=== PATIENT | female | born 1945 | race African-American/Black ===

== ENCOUNTER 2022-06-05 14:44 | Inpatient (IN) | payer OTHER ==
[~2022-06-05] VITALS: Ht 152.4 cm; Wt 49.4 kg
[2022-06-05 15:03] VITALS: BP 153/84
[2022-06-05] MEDS ORDERED: NACL 0.9% 1,000 ML IV ONE (15:10)
--- NOTE | 2022-06-05 15:30 | NUR ---
PT PLACED ON NON-REBREATHER MASK D/T DESATURATION EPISODES AND SOB. PT NOTED TO HAVE AUDIBLE CONGESTION, NASO-TRACHEAL SUCTION PERFORMED WITH COPIOUS YELLOW-BEIGE SECRETIONS COLLECTED. O2 TITRATED TO 6L SIMPLE MASK SPO2 97% TOLERATING WELL.
[2022-06-05 15:53] LABS: BASOPHILS # (AUTO) 0.1 K/uL (0.00-0.22); BASOPHILS % (AUTO) 0.5 % (0.0-2.0); HEMATOCRIT 38.7 % (36-48); HEMOGLOBIN 13.1 g/dL (12.0-16.0); LYMPHOCYTES # (AUTO) 1.6 K/uL (2.5-16.5); MEAN CORPUSCULAR HEMOGLOBIN 31 pg (27-31); MEAN CORPUSCULAR HGB CONC 34 g/dL (33-37); MEAN CORPUSCULAR VOLUME 92.1 fL (80-94); MONOCYTES # (AUTO) 0.9 K/uL (0.8-1.0); MONOCYTES % (AUTO) 8.2 % (1.7-9.3); NEUTROPHILS # (AUTO) 8.1 K/uL (1.8-7.7); NEUTROPHILS % (AUTO) 76.3 % (42.2-75.2); PLATELET COUNT (AUTO) 200 K/uL (140-450); RED CELL DISTRIBUTION WIDTH 18.2 % (11.6-13.7); WHITE BLOOD COUNT (AUTO) 10.7 K/uL (4.8-10.8)
[2022-06-05 16:06] LABS: ALBUMIN 1.6 g/dL (3.4-5.0); ANION GAP 8.6 (8-16); ASPARTATE AMINOTRANSFERASE 22 U/L (15-37); CARBON DIOXIDE 29.3 mmol/L (21-32); CHLORIDE 107 mmol/L (98-107); CREATININE 0.6 mg/dL (0.6-1.3); GLUCOSE 148 mg/dL (74-106); SODIUM SERUM 142 mmol/L (136-145); TOTAL BILIRUBIN 0.4 mg/dL (0.0-1.0); UREA NITROGEN, BLOOD 11 mg/dL (7-18)
[2022-06-05 16:09] LABS: POTASSIUM 2.9 mmol/L (3.5-5.1)
[2022-06-05] MEDS ORDERED: KCL 20 MEQ/WATER INJ PREMIX 200 ML IV ONE (16:15)
[2022-06-05] MEDS ORDERED: PIPERACILLIN/TAZOBACTAM 3.375 GM in DEXTROSE 5% 50 ML IV ONE (16:20)
[2022-06-05] MEDS ORDERED: VANCOMYCIN 1,000 MG in DEXTROSE 5% 250 ML IV ONE (16:20)
[2022-06-05 16:50] LABS: APPEARANCE,URINE CLEAR (CLEAR); BILIRUBIN,URINE NEGATIVE (NEGATIVE); BLOOD, URINE TRACE-I (NEGATIVE); COLOR,URINE YELLOW (YELLOW); LEUKOCYTE ESTERASE ,URINE NEGATIVE (NEGATIVE); NITRITE, URINE NEGATIVE (NEGATIVE); PH,URINE 7.5 (5.0-9.0); UGLUCOSE NEGATIVE (NEGATIVE)
[2022-06-05] MEDS ORDERED: PIPERACILLIN/TAZOBACTAM 3.375 GM VIAL IV ONE ×2 (16:50→21:58)
[2022-06-05] MEDS ORDERED: VANCOMYCIN 1,000 MG VIAL ONE (16:51)
[2022-06-05 17:08] LABS: RBC,URINE 0-5 /HPF (0-5)
[2022-06-05 17:09] LABS: TRICHOMONAS,URINE None Seen /HPF (None Seen); WBC,URINE 0-5 /HPF (0-5); YEAST,URINE None Seen /HPF (None Seen)
[2022-06-05 17:10] LABS: CALCIUM OXALATE CRYSTALS,UR 0-10 /HPF (None Seen)
[2022-06-05] MEDS ORDERED: MAG SULF 2000 MG/WATER PREMIX 50 ML IV PRN (17:35)
[2022-06-05] MEDS ORDERED: ONDANSETRON 4 MG/2 ML VIAL IM/IVP PRN (17:35)
[2022-06-05] MEDS ORDERED: DOCUSATE SODIUM 100 MG GELCAP PO PRN (17:35)
[2022-06-05] MEDS ORDERED: ACETAMINOPHEN 325 MG TAB PO PRN (17:35)
[2022-06-05] MEDS ORDERED: SODIUM PHOS / POTASSIUM PHOS 1 PKT PDR PO PRN (17:35)
--- NOTE | 2022-06-05 17:47 | NUR ---
pt sleeping, no ac distress, rr 24/min, o2 sa97% fm, iv patent left foot, getting abx, no erythema or swelling at iv site, md and charge nurse aware no iv access to arms, no signs of infiltration at iv site
[2022-06-05 18:25] LABS: MAGNESIUM 1.9 mg/dL (1.8-2.4); PHOSPHORUS 2.7 mg/dL (2.5-4.9)
[2022-06-05] MEDS ORDERED: VANCOMYCIN PER PHARMACY MC PRN (19:10)
[2022-06-05] MEDS ORDERED: LACT1TAB47 NGT (19:14)
[2022-06-05] MEDS ORDERED: [UNRECOGNIZED DRUG - CODE] NGT (19:22)
[2022-06-05] MEDS ORDERED: ROB1 NGT (19:22)
[2022-06-05] MEDS ORDERED: LORA-476 NGT (19:22)
[2022-06-05] MEDS ORDERED: KEP500L NGT (19:22)
--- NOTE | 2022-06-05 19:38 | NUR ---
FAMILY REPORTED THAT THEY WOULD LIKE TO PRAY FOR PATIENT. ON THE PHONE, SPEAKING TO FRANCISCO TENA AND FRANCISCO WILL PRAY TO PATIENT.
--- NOTE | 2022-06-05 19:52 | NUR ---
NOTED PT TO SUDDENLY HAVE TREMORS, TO TWITCHING LIKE MOVEMENT, PT EYES OPEN. CALLED ER MD- PT DOES HAVE HX OF SEIZURES, ER MD WILL ORDER ATIVAN FOR PATIENT FOR SEIZURE LIKE MOVEMENT.
--- NOTE | 2022-06-05 20:09 | NUR ---
CHECKED PATIENT FOR WOUNDS. NO WOUNDS NOTED AT THIS TIME BUT THERE SEEMS TO BE CLOSED AND HEALED WOUNDS AT THE COCCYX & BUTTOCKS AREA.
[2022-06-05] MEDS ORDERED: LORazepam 2 MG/ML VIAL IVP PRN (20:20)
--- NOTE | 2022-06-05 21:30 | NUR ---
PT TRANSPORTED VIA GURNEY. PT IS NONVERBAL. PT IS ON SIMPLE FACEMASK 6L SATING 99%. PT HAS LEFT FOOT 20 GAUGE ON NS 75 CC/HR. PT HAS NG TUBE ALREADY PLACED. FC DRAINING CLEAR YELLOW URINE. PT AT THE LOWEST POSITION. HEAD OF THE BED RAISED. WILL CONTINUE TO MONITOR THE PT.
--- NOTE | 2022-06-05 21:33 | NUR ---
Patient will be admitted to care of Nichole RAYO. Admited to telemetry. Will go to room 115. Belongings list completed. Report to Burak IBARRA.
[2022-06-05 21:35] VITALS: BP 153/78
[2022-06-05] MEDS: GLYCOPYRROLATE 1 MG TAB NG SCH ×2 (22:00→23:30)
[2022-06-05] MEDS: levETIRAcetam 100 MG/ML ORASYR NG SCH ×2 (22:00→23:30)
[2022-06-05] MEDS: PIPERACILLIN/TAZOBACTAM 3.375 GM in DEXTROSE 5% 50 ML IV SCH (22:09)
[2022-06-05] MEDS: DEXT 5% / NACL 0.45% 1,000 ML IV SCH (22:09)
--- NOTE | 2022-06-05 22:25 | NUR ---
UNABLE TO GIVE NG MEDICATIONS. PT CAME IN WITH NG TUBE ALREADY IN PLACE. [facility] SYRING[facility] DONT FIT IN THE PT NG TUBE FROM [facility].
[2022-06-06] VITALS: BP 155/83
--- NOTE | 2022-06-06 02:03 | NUR ---
PT IS SLEEPING IN BED COMFORTABLY. PT IS NOT IN ANY ACUTE DISTRESS. PT IS SATING 100% ON SIMPLE FACE MASK 5L. WILL CONTINUE TO MONITOR THE PT.
[2022-06-06 04:00] VITALS: BP 111/72
[2022-06-06] MEDS ORDERED: PIPERACILLIN/TAZOBACTAM 3.375 GM VIAL IV ONE (04:47)
[2022-06-06] MEDS: PIPERACILLIN/TAZOBACTAM 3.375 GM in DEXTROSE 5% 50 ML IV SCH ×3 (04:54→21:00)
[2022-06-06] MEDS: GLYCOPYRROLATE 1 MG TAB NG SCH ×3 (04:55→21:00)
--- NOTE | 2022-06-06 05:08 | NUR ---
SCHEDULE MEDICATIONS GIVEN. NO ADVERSE REACTION NOTED. PT NOT IN ANY RESPIRATORY DISTRESS. PT IS SATING 99%. WILL CONTINUE TO MONITOR THE PT.
[2022-06-06] MEDS: DEXT 5% / NACL 0.45% 1,000 ML IV SCH ×2 (05:19→23:00)
[2022-06-06 07:07] LABS: BASOPHILS % (AUTO) 0.3 % (0.0-2.0); EOSINOPHILS % (AUTO) 0.4 % (0.0-4.0); HEMATOCRIT 30.5 % (36-48); LYMPHOCYTES # (AUTO) 1.6 K/uL (2.5-16.5); LYMPHOCYTES % (AUTO) 25.9 % (20.5-51.1); MEAN CORPUSCULAR HEMOGLOBIN 31 pg (27-31); MEAN CORPUSCULAR HGB CONC 33 g/dL (33-37); MEAN CORPUSCULAR VOLUME 93.8 fL (80-94); MONOCYTES # (AUTO) 0.7 K/uL (0.8-1.0); NEUTROPHILS % (AUTO) 62.4 % (42.2-75.2); PLATELET COUNT (AUTO) 129 K/uL (140-450); RED BLOOD CELL COUNT(AUTO) 3.26 MIL/uL (4.20-5.40); RED CELL DISTRIBUTION WIDTH 17.8 % (11.6-13.7); WHITE BLOOD COUNT (AUTO) 6.4 K/uL (4.8-10.8)
--- NOTE | 2022-06-06 07:18 | NUR ---
ENDORSED PT TO DAY SHIFT RN ADZ FOR CONTINUITY OF CARE. PT IS STABLE.
[2022-06-06 08:00] VITALS: BP 131/54
[2022-06-06] MEDS: PANTOPRAZOLE 40 MG INJ VIAL IVP SCH (08:43)
[2022-06-06] MEDS: levETIRAcetam 100 MG/ML ORASYR NG SCH ×2 (08:43→21:00)
[2022-06-06 08:45] LABS: ANION GAP 10.5 (8-16); CARBON DIOXIDE 24.4 mmol/L (21-32); CHLORIDE 112 mmol/L (98-107); CREATININE 0.5 mg/dL (0.6-1.3); GLUCOSE 100 mg/dL (74-106); SODIUM SERUM 144 mmol/L (136-145); UREA NITROGEN, BLOOD 8 mg/dL (7-18)
[2022-06-06 09:43] LABS: POTASSIUM 2.9 mmol/L (3.5-5.1)
[2022-06-06] MEDS: POTASSIUM CHLORIDE 40 MEQ, LIDOCAINE MPF 1% 25 MG in NACL 0.9% 250 ML IV PRN (11:20)
[2022-06-06 12:00] VITALS: BP 135/60
[2022-06-06 16:00] VITALS: BP 128/64
[2022-06-06] MEDS ORDERED: VANCOMYCIN 1,000 MG in DEXTROSE 5% 250 ML IV SCH (16:00)
[2022-06-06 20:00] VITALS: BP 134/68
[2022-06-07] VITALS: BP 140/72
--- NOTE | 2022-06-07 01:27 | NUR ---
PATIENT NOT RESPONSIVE TO TOUCH NON VERBAL TEMP 97.1 LUNGS DIMINISH SINUS ON MONITOR HAS NGT N.P.O. EXCEPT MEDS. HAS D51/2NS AT 75 HOUR. HAS 20 GA IN FOOT. PATIENT SUCTION BY R.T. THICK SECRETIONS. PATIENT IS A MODIFIED CODE. NO DISTRESS NOTED.
[2022-06-07 04:00] VITALS: BP 142/76
[2022-06-07] MEDS: PIPERACILLIN/TAZOBACTAM 3.375 GM in DEXTROSE 5% 50 ML IV SCH ×2 (05:00→12:24)
[2022-06-07] MEDS: GLYCOPYRROLATE 1 MG TAB NG SCH ×2 (05:00→12:26)
[2022-06-07 07:28] LABS: BASOPHILS % (AUTO) 0.5 % (0.0-2.0); EOSINOPHILS # (AUTO) 0.1 K/uL (0-0.4); EOSINOPHILS % (AUTO) 1.1 % (0.0-4.0); HEMATOCRIT 31.9 % (36-48); HEMOGLOBIN 10.6 g/dL (12.0-16.0); LYMPHOCYTES # (AUTO) 1.1 K/uL (2.5-16.5); LYMPHOCYTES % (AUTO) 18.8 % (20.5-51.1); MEAN CORPUSCULAR HEMOGLOBIN 31 pg (27-31); MEAN CORPUSCULAR HGB CONC 33 g/dL (33-37); MEAN CORPUSCULAR VOLUME 93.3 fL (80-94); MONOCYTES # (AUTO) 0.6 K/uL (0.8-1.0); MONOCYTES % (AUTO) 11.2 % (1.7-9.3); NEUTROPHILS # (AUTO) 3.8 K/uL (1.8-7.7); NEUTROPHILS % (AUTO) 68.4 % (42.2-75.2); PLATELET COUNT (AUTO) 147 K/uL (140-450); RED BLOOD CELL COUNT(AUTO) 3.42 MIL/uL (4.20-5.40); RED CELL DISTRIBUTION WIDTH 17.7 % (11.6-13.7); WHITE BLOOD COUNT (AUTO) 5.6 K/uL (4.8-10.8)
[2022-06-07 07:29] LABS: ANION GAP 7.6 (8-16); CARBON DIOXIDE 30.9 mmol/L (21-32); CHLORIDE 108 mmol/L (98-107); CREATININE 0.5 mg/dL (0.6-1.3); GLUCOSE 111 mg/dL (74-106); SODIUM SERUM 144 mmol/L (136-145); UREA NITROGEN, BLOOD 5 mg/dL (7-18)
[2022-06-07 07:38] LABS: POTASSIUM 2.5 mmol/L (3.5-5.1)
[2022-06-07 08:00] VITALS: BP 151/77
--- NOTE | 2022-06-07 08:00 | NUR ---
ASSESSMENT COMPLETED PLAN OF CARE REVIEWED TURNED AND REPSOTIONED NO S/S OF PAIN NOTED WILL CONTINUE TO MONOTOR AND ASSESS
[2022-06-07] MEDS: levETIRAcetam 100 MG/ML ORASYR NG SCH (08:24)
[2022-06-07] MEDS: PANTOPRAZOLE 40 MG INJ VIAL IVP SCH (08:24)
--- NOTE | 2022-06-07 08:52 | NUR ---
PT. WITH LOW LUC SCALE AT MODERATE TO HIGH RISK, CONTINUE TO FOLLOW PRESSURE INJURY PREVENTION INTERVENTIONS. -POSITIONING: TURN AND REPOSITION PATIENT Q 2H OR SOONER USE PILLOWS TO KEEP BONY PROMINENCES FROM DIRECT CONTACT WITH SURFACES USE REPOSITIONING WEDGES TO PROVIDE 30-DEGREE ANGLE FOR SIDE LYING POSITIONS OFFLOADING OR FOAM DRESSING TO ALL TUBING TO PREVENT MEDICAL DEVICES RELATED PRESSURE INJURY -RE-EVALUATING AND MANAGING INCONTINENCE MONITOR SKIN CONDITION DURING POSITION CHANGE DO NOT MASSAGE REDNESS, BONY PROMINENCES FREQUENT VIET-CARE AND PROVIDE BARRIER CREAMS PRN IF SOILING MOISTURE CONTROL BY OFFER BED RAYMOND/URINAL /ABSORBENT PAD TO WICK AND HOLD MOISTURE KEEP SKIN DRY AND PROTECT FROM FRICTION -MANAGE FRICTION/SHEAR/MOBILITY KEEP HOB AT THE LOWEST LEVEL OF ELEVATION NO MORE THAN 30 DEGREE UNLESS OTHERWISE CONTRAINDICATED USE LIFT SHEET OR TRANSFER DEVICE TO MOVE PATIENT AND PREVENT LATERAL SHEER. PROTECT HEELS, ELBOWS BONY PROMINENCES WITH SKIN BERRIES OR FOAM DRESSING IF EXPOSED TO FRICTION OFFLOAD BILATERAL HEELS BY PLACING PILLOWS UNDER CALVES AT ALL TIMES, UNLESS OTHERWISE CONTRAINDICATED -PRESSURE REDISTRIBUTION SURFACE THERAPY KALEB ISOFLEX MATTRESS -NUTRITION: PLEASE FOLLOW RD RECOMMENDATIONS AND OFFER NUTRITION SUPPLEMENTS IF ORDERED. PLEASE CONTACT WOUND CARE NURSE FOR ANY QUESTION AND CHANGE OF WOUND CONDITION.
[2022-06-07] MEDS: POTASSIUM CHLORIDE 40 MEQ, LIDOCAINE MPF 1% 25 MG in NACL 0.9% 250 ML IV PRN (09:02)
[2022-06-07] MEDS: DEXT 5% / NACL 0.45% 1,000 ML IV SCH ×2 (09:35→12:29)
--- NOTE | 2022-06-07 10:44 | NUR ---
PATIENT HAS BEEN SCREENED AND CATEGORIZED HIGH NUTRITION RISK. PATIENT WILL BE SEEN WITHIN 1-2 DAYS OF ADMISSION. 06/05/22-06/07/22 FNS REFERRAL RECEIVED FOR TUBE FEEDING REVIEWED BY MARINA KAHN RD
[2022-06-07 12:00] VITALS: BP 154/75
--- NOTE | 2022-06-07 12:49 | NUR ---
MD XIAO MADE AWARE OF BP 154/77 NO NEW ORDERS AT THIS TIME PER MD IF SBP GREATER THAN 160 NOTIFY HIM PT APPEARS IN NO ACUTE DITRESS AT THIS TIME
--- NOTE | 2022-06-07 13:25 | NUR ---
LATE ENTRY- IVPB PIPERACILLIN DISCONTINUED AT 2132. IV POTASSIUM DISCONTINUED AT 2132. IV VANCOMYCIN DISCONTINUED AT 2132.
--- NOTE | 2022-06-07 13:50 | NUR ---
DC PLANNING: FAXED THE ORDER STABLE FOR TRANSFER TO [facility] [phone]. CM TO FOLLOW Addendum: 06/07/22 at 1452 by Sidra Glynn RN DC PLANNING: RECEIVED A CALL FROM [facility] CASE BILLING ANALYST SPOKE WITH [employer] UPDATED HER PATIENT'S CLINICAL PER [employer] WORKING ON IT AND WILL CALL BACK WHEN BED AVAILABLE. CM TO FOLLOW
[2022-06-07] MEDS ORDERED: POTASSIUM CHLORIDE 40 MEQ, LIDOCAINE MPF 1% 25 MG in NACL 0.9% 250 ML IV SCH (14:00)
--- NOTE | 2022-06-07 15:45 | NUR ---
TIME CORRECTION FOR 0676
--- NOTE | 2022-06-07 16:01 | NUR ---
ON OR ABOUT THIS TIME; USING A GLIDESCOPE PATIENT WAS SUCCESSFULLY INTUBATED BY ERMD WITH AN ENDOTRACHEAL TUBE #7.5 AT 23m TEETH/GUM LINE SECURED WITH AN ANCHOR FAST; BAG MASK VALVE DEPRESSION EVERY 6 SECONDS; PLACEMENT CONFIRMATION: ETCO2 DETECTOR YELLOW, GOOD CHEST RISE, AUSCULTATION BILATERAL APEX TO MID BY ERMD WITH GOOD AERATION; CXR TO FOLLOW; SATURATION MONITORING
--- NOTE | 2022-06-07 16:13 | NUR ---
06/07/22 RD INITIAL ASSESSMENT COMPLETED PLEASE REFER TO NUTRITION ASSESSMENT UNDER CARE ACTIVITY FOR ESTIMATED NUTRITIONAL NEEDS. 1. WHEN/IF MEDICALLY APPROPRIATE, RECOMMEND JEVITY 1.2 @ 45 ML/HR -FWF: 100 ML Q6H -START AT 20 ML/HR AND INCREASE BY 20 ML Q4H TOLERATED UNTIL GOAL RATE IS ACHIEVED. -PATIENT WILL RECEIVE 1296 KCAL, 60 GRAMS PROTEIN, AND 1271 ML VOLUME. THIS WILL MEET 100% OF PATIENTS ESTIMATED KCAL NEEDS AND 100% OF PROTEIN NEEDS. 2. MONITOR NUTRITION RELATED LAB VALUES AND PO STATUS 3. RD TO FOLLOW-UP 3-5 DAYS, MODERATE RISK REVIEWED BY MARINA KAHN RD
--- NOTE | 2022-06-07 16:45 | NUR ---
ON OR ABOUT THIS TIME CODE KARL WAS CALLED; Lou JAMES RCP AND Bernadette RAZA RCP ATTENDING; CLASS CODE REVIEWED BY MJ AND RN MODIFIED CODE NO CHEST COMPRESSION Addendum: 06/10/22 at 0903 by Yuval James RT TIME CORRECTION 3637
--- NOTE | 2022-06-07 16:47 | NUR ---
APPROXIMATELY 1552 CHERRY CUTTER YELLED PT HR DROPPING WENT TO THE ROOM IMMEDIATELY AND NOTED A WEAK THREADY PULSE CODE BLUE ACTIVATED PT MODIFIED CODE NO CHEST COMPRESSIONS IV AT LEFT FOOT WIDE OPEN AND ACLS DRUGS TO START 1555 EPI GIVEN 1557 EPI GIVEN BLOOD GLUCOSE 134 1559 CALCIUM GIVEN PULSE CHECK 1600 FAMILY NOTIFIED 1600 EPI GIVEN 1602 INTUBATED 7.5 23@ TEETH 1603 I/O PLACED AT RIGHT LOWER EXTREMITY 1604 SODIUM BICARB X 2 1605 EPI GIVEN 1606 ASYTOLE 1608 EPI GIVEN 1610 ASYSTOLE 1611 TIME OF PRONOUNCED BY DR ELAM
--- NOTE | 2022-06-07 16:55 | NUR ---
1640 [employer] NOTIFIED AND PT NOT A CANDIDATE REFERENCE NUMBER [id number] SPOKE WITH MARÍA PADILLA 1645 CORNER CALLED SPOKE WITH AND ANTOLINUTY WILL HAVE A FARM PLANNER CALL BACK TO TAKE THE REPORT [phone] BARBARA IN ADMITTING NOTIFIED NEENA NURSE STRAIGHTENER AND ALIGNER PRESENT DURING CODE AND AWARE
--- NOTE | 2022-06-07 17:29 | NUR ---
SPOKE WITH OLGA SAAVEDRA FROM [facility] TO RELEASE PATINET NO SHARYN CASE NO [facility] CASE NUMBER
--- NOTE | 2022-06-07 18:33 | NUR ---
FAMILY IN AND PRESENT AND CHOSE [facility] IN [place] SPOKE WITH RASHI AT [facility] AND ETA 2 HOUR AND 30 MINUTES FAMILY LEFT
== END 2022-06-07 16:11 | DRG 871 ==
LOC: MED 14:44 → EDBEDREQSVC 17:23 → MTU 17:32
PROVIDERS: ADMIT Hospitalist; ATTEND Hospitalist
PROC: 0BH17EZ Insertion of Endotracheal Airway into Trachea, Via Natural or Artificial Opening (ICD-10-PCS; principal; 2022-06-07)
DX: A41.9 Sepsis, unspecified organism (principal); E43 Unspecified severe protein-calorie malnutrition; G93.41 Metabolic encephalopathy; J69.0 Pneumonitis due to inhalation of food and vomit; J96.01 Acute respiratory failure with hypoxia; N39.0 Urinary tract infection, site not specified; E03.9 Hypothyroidism, unspecified; Z66 Do not resuscitate; G40.909 Epilepsy, unspecified, not intractable, without status epilepticus; D63.8 Anemia in other chronic diseases classified elsewhere; G30.9 Alzheimer's disease, unspecified; F02.80 Dementia in other diseases classified elsewhere, unspecified severity, without behavioral disturbance, psychotic disturbance, mood disturbance, and anxiety; E78.5 Hyperlipidemia, unspecified; E87.6 Hypokalemia; Z20.822 Contact with and (suspected) exposure to COVID-19; E83.51 Hypocalcemia; I70.0 Atherosclerosis of aorta; R13.11 Dysphagia, oral phase; I10 Essential (primary) hypertension; Z90.12 Acquired absence of left breast and nipple; Z88.5 Allergy status to narcotic agent; Z88.6 Allergy status to analgesic agent; Z88.8 Allergy status to other drugs, medicaments and biological substances; Z79.899 Other long term (current) drug therapy; Z68.21 Body mass index [BMI] 21.0-21.9, adult
CPT/HCPCS: 36415; 36600; 71045; 80048; 80053; 81001; 82803; 82948; 83605; 83735; 83880; 84100; 84484; 85025; 87040; 87081; 87086; 93005; 96365; 96368; 99285; C9113; J1644; J2001; J2060; J2543; J3370; J3480; J7030; J7060; Q0092